=== PATIENT | male | born 1995 | race American Indian/Alaskan Native ===

== ENCOUNTER 2017-01-28 09:49 | Emergency (ER) | payer SELFPAY ==
[2017-01-28 10:23] LABS: Urine Drugs of Abuse Note Disclamer
[2017-01-28 10:31] LABS: Basophils % (Auto) 0.4 % (0.0-1.8); Eosinophils % (Auto) 4.2 % (0.0-4.3); Hematocrit 44.5 % (35.5-45.6); Hemoglobin 14.9 gm/dl (11.8-15.2); Mean Corpuscular HGB Conc 34 % (32-34); Mean Corpuscular Hemoglobin 29 pg (28-32); Mean Corpuscular Volume 88 fl (84-94); Platelet Count 236 K/mm3 (140-440); Red Blood Count 5.08 M/mm3 (3.65-5.03); Red Cell Distribution Width 16.6 % (13.2-15.2); White Blood Count 8.4 K/mm3 (4.5-11.0)
[2017-01-28 10:41] LABS: Bilirubin,Urine NEG (Negative); Blood,Urine NEG (Negative); Ketones,Urine NEG (Negative); Leukocyte Esterase,Urine NEG (Negative); Mucus,Urine FEW /HPF; Nitrite,Urine NEG (Negative); Protein,Urine <15 mg/dL mg/dL (Negative); RBC,Urine < 1.0 /HPF (0.0-6.0); WBC,Urine < 1.0 /HPF (0.0-6.0)
[2017-01-28 10:59] LABS: Anion Gap 15 mmol/L; BUN/Creatinine Ratio 15.71; Blood Urea Nitrogen 11 mg/dL (9-20); Calcium 8.9 mg/dL (8.4-10.2); Carbon Dioxide 25 mmol/L (22-30); Chloride 103.1 mmol/L (98-107); Glucose 98 mg/dL (75-100); Potassium 3.8 mmol/L (3.6-5.0); Sodium 139 mmol/L (137-145)
--- NOTE | 2017-01-28 12:11 | Emergency Department Report ---
HPI - General Chief Complaint: Psych Time Seen by Provider: 01/28/17 12:05 - HPI HPI: Chief complaint: Patient brought by his family for psychiatric evaluation HPI: Patient with history of a mood disorder who is incarcerated until December of this year. Patient states he is living with his girlfriend but his family states he is an homeless. Patient has been off his medication for one year and family states that he can become violent when he is not taking his medication. Patient denies homicidal or suicidal thoughts and has not recently had any violent outbreaks. Mode of arrival: private car Source: Patient, nursing and mental health notes Began: See above Duration: See above Context: See above Quality: Pain-free Severity: 0 out of 10 Improved with: Nothing Worsened with: Not taking his medications per family Associated signs and symptoms: Denies ED Past Medical Hx - Past Medical History Previous Medical History?: Yes Hx Psychiatric Treatment: Yes (depression) - Surgical History Past Surgical History?: Yes Hx Appendectomy: Yes - Social History Smoking Status: Current Every Day Smoker Substance Use Type: Alcohol, Marijuana - Medications Home Medications: Home Medications Medication Instructions Recorded Confirmed Last Taken Type No Known Home Medications [No 10/10/16 10/10/16 Unknown History Reported Home Medications] ED Review of Systems ROS: Stated complaint: PSYCH EVALUATION Other details as noted in HPI ROS Constitutional: No fever ENT: No uri symptoms Cardiovascular: No chest pain Respiratory: No sob or cough GI: No nausea vomiting or diarrhea : No dysuria frequency or urgency, Skin: No rash Neuro: No focal weakness or numbness Psych: Straight of mood disorder Reynaldo/lymph: No edema Physical Exam - Physical Exam Vital Signs: Vital Signs 01/28/17 10:05 Temperature 97.6 F Pulse Rate 66 Respiratory 20 Rate Blood Pressure 127/77 O2 Sat by Pulse 100 Oximetry Physical Exam: GENERAL: The patient is well-developed well-nourished. HEENT: Normocephalic. Atraumatic. Extraocular motions are intact. Patient has moist mucous membranes. NECK: Supple. No meningitic signs are noted. There is no adenopathy noted. CHEST/LUNGS: There is no respiratory distress noted. ABDOMEN: There is no abdominal distention. SKIN: There is no rash. There is no edema. There is no diaphoresis. NEURO: The patient is awake, alert, and oriented ancillary. The patient is cooperative. Patient has a normal gait. The patient has normal speech. MUSCULOSKELETAL: There is no tenderness or deformity. There is no limitation range of motion. There is no evidence of acute injury. ED Course Vital Signs 01/28/17 10:05 Temperature 97.6 F Pulse Rate 66 Respiratory 20 Rate Blood Pressure 127/77 O2 Sat by Pulse 100 Oximetry - Reevaluation(s) Reevaluation #1: 01/28/17 Patient evaluated by mental health freezer worker. ED Medical Decision Making - Lab Data Result diagrams: 01/28/17 10:15 01/28/17 10:15 Laboratory Tests 01/28/17 10:15 Plasma/Serum Alcohol < 0.01 Laboratory Tests 01/28/17 10:20 U Marijuana (THC) Screen Presumptive positive Urinalysis within normal limits. Critical care attestation.: If time is entered above; I have spent that time in minutes in the direct care of this critically ill patient, excluding procedure time. ED Disposition Clinical Impression: Mood disorder Disposition: DISCHARGED TO HOME OR SELFCARE Is pt being admited?: No Does the pt Need Aspirin: No Condition: Stable Instructions: Mood Disorders (ED) Referrals: PRIMARY CARE, [Primary Care Provider] - 3-5 Days [facility] [Outside] - 3-5 Days Time of Disposition: 13:03
[2017-01-28 13:11] VITALS: BP 124/71
== END 2017-01-28 13:09 | disposition home or self-care (01) ==
LOC: ED 09:49
DX: F39 Unspecified mood [affective] disorder (principal); F17.200 Nicotine dependence, unspecified, uncomplicated; F12.90 Cannabis use, unspecified, uncomplicated
CPT/HCPCS: 36415; 80048; 80307; 81001; 85025; 99284; G0480; 80320